=== PATIENT | male | born 1960 | race Caucasian/White ===

== ENCOUNTER 2016-07-21 15:29 | Emergency (ER) | payer SELFPAY ==
[~2016-07-21] VITALS: Ht 177.8 cm; Wt 77.1 kg
[~2016-07-21 15:29] MED LIST: ATOM40CA3 PO; CHLO25CA10 PO; CYCL5TAB PO; DICL50TA6 PO; DIPH25TA82 PO; FLC1T PO; GABA-488 PO; LRZ1T PO; METH20TA PO; MULT1CAP27 PO; NAPR1TAB25 PO; NAPR220C11 PO; NAPR500T3 PO; OMEP40CA36 PO; ONDA4TAB8 PO; OXYC-465 PO; PRD20T PO; RANI150T15 PO; SUCR1TAB PO; SULF1TAB35 PO; THIA100T12 PO; TRAM-42 PO; TRAM50TA2 PO; TRAZ-144 PO; TRAZ100T92 PO; TRZ100T PO; blood pressure PO
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
[2016-07-21 15:59] LABS: BASOPHILS % (AUTO) 0 % (0-10); EOSINOPHILS # (AUTO) 0.1 10^3/uL (0.0-0.3); EOSINOPHILS % (AUTO) 2 % (0-10); LYMPHOCYTES # (AUTO) 1.4 X 10^3 (1.0-4.0); LYMPHOCYTES % (AUTO) 28 % (12-44); MEAN CORPUSCULAR HEMOGLOBIN 30 PG (25-34); MEAN CORPUSCULAR HGB CONC 33 G/DL (32-36); MEAN CORPUSCULAR VOLUME 91 FL (80-99); MEAN PLATELET VOLUME 9.4 FL (7.4-10.4); MONOCYTES # (AUTO) 0.4 X 10^3 (0.0-1.0); MONOCYTES % (AUTO) 8 % (0-12); NEUTROPHILS % (AUTO) 61 % (42-75); PLATELET COUNT 158 10^3/uL (130-400); RED BLOOD COUNT 4.59 10^6/uL (4.35-5.85); RED CELL DISTRIBUTION WIDTH 14.1 % (10.0-14.5); WHITE BLOOD COUNT 4.9 10^3/uL (4.3-11.0)
[2016-07-21] MEDS ORDERED: NS IV 1000 ML 1,000 ML IV SCH (16:00)
[2016-07-21 16:19] LABS: PROTHROMBIN TIME PATIENT 13.1 SEC (12.2-14.7)
[2016-07-21 16:22] LABS: ALANINE AMINOTRANSFERASE 100 U/L (0-55); ALBUMIN 3.7 G/DL (3.2-4.5); ALCOHOL 242 MG/DL (<10); AMMONIA 36 UMOL/L (11-32); ANION GAP 17 MMOL/L (5-14); ASPARTATE AMINO TRANSFERASE 120 U/L (5-34); BILIRUBIN,TOTAL 0.4 MG/DL (0.1-1.0); BLOOD UREA NITROGEN 17 MG/DL (7-18); BUN/CREATININE RATIO 21; CALCIUM 9.1 MG/DL (8.5-10.1); CARBON DIOXIDE 15 MMOL/L (21-32); CHLORIDE 109 MMOL/L (98-107); CREATININE SERUM 0.82 MG/DL (0.60-1.30); GFR ESTIMATED > 60; GLUCOSE 137 MG/DL (70-105); POTASSIUM 3.9 MMOL/L (3.6-5.0); SALICYLATE < 5.0 MG/DL (5.0-20.0); SODIUM 141 MMOL/L (135-145); TOTAL PROTEIN 6.7 G/DL (6.4-8.2)
--- NOTE | 2016-07-21 16:31 | Diagnostic Imaging Report ---
EXAMINATION: Three views of the right hand. INDICATION: Injury. FINDINGS: There is an indeterminate ossified fragment measuring 2 mm seen at the ulnar aspect of the second metacarpal/phalangeal joint. This could be related to an avulsion injury of indeterminate age. No definite donor site is identified. Correlate with the location of injury and focal tenderness. There is otherwise no fracture, dislocation, or radiopaque foreign body seen. IMPRESSION: Indeterminate 2 mm ossified fragment along the ulnar aspect of the second MCP joint. If this matches the location of injury and tenderness, a small avulsion fracture could be considered. Dictated by: Dictated on workstation # [id number]
--- NOTE | 2016-07-21 16:40 | Diagnostic Imaging Report ---
PROCEDURE: CT head and CT cervical spine without contrast. TECHNIQUE: Multiple contiguous axial images were obtained through the brain and cervical spine without the use of intravenous contrast. Sagittal and coronal reformations through the cervical spine were then performed. INDICATION: Altered mental status. Fall. FINDINGS: CT HEAD: There is no intracranial hemorrhage, edema, or mass effect. The brain parenchyma demonstrates periventricular and deep white matter hypodensities, compatible with chronic microvascular ischemic changes. There is no hydrocephalus. No extra-axial fluid collection is seen. The calvarium demonstrates evidence of prior right frontoparietal craniotomy. There is mild soft tissue swelling along the right frontal region which may relate to a small contusion. The visualized portions of the paranasal sinuses and orbits appear grossly unremarkable. CT CERVICAL SPINE: There is straightening of the upper cervical curvature. The vertebral body heights are preserved. There is mild disc height loss at the C4-5 level. At this level, there is prominent disc herniation and an ossification focus, stable from 11/24/2015, which appears to be at the level of the posterior longitudinal ligament. There is suggestion of significant spinal canal stenosis at this level reducing the AP dimension of the spinal canal to 6 mm. The alignment of the facet joints is satisfactory. There is, however, facet and uncovertebral joint degenerative change. This is associated with foraminal stenosis, severe on the right side at the C4-5 and C5-6 levels and severe on the left at C4-5 and moderate at C5-6. There is no widening of the predental space. The alignment of the lateral masses of C1 and C2 and the atlantooccipital joints is satisfactory. No fracture is seen. IMPRESSION: CT HEAD: No intracranial hemorrhage. CT CERVICAL SPINE: Prominent degenerative changes, worst at the C4-5 level, associated with significant spinal canal and foraminal stenosis. No fracture is seen. Dictated by: Dictated on workstation # [id number]
[2016-07-21 18:34] VITALS: BP 124/77
== END 2016-07-21 18:34 | disposition home or self-care (01) ==
LOC: EDUNIT# 15:29 → ER 15:31
DX: F10.129 Alcohol abuse with intoxication, unspecified (principal); F15.90 Other stimulant use, unspecified, uncomplicated; F11.90 Opioid use, unspecified, uncomplicated; S00.81XA Abrasion of other part of head, initial encounter; S69.91XA Unspecified injury of right wrist, hand and finger(s), initial encounter; I10 Essential (primary) hypertension; J44.9 Chronic obstructive pulmonary disease, unspecified; F90.9 Attention-deficit hyperactivity disorder, unspecified type; B19.20 Unspecified viral hepatitis C without hepatic coma; F41.9 Anxiety disorder, unspecified; X58.XXXA Exposure to other specified factors, initial encounter; Y99.8 Other external cause status
CPT/HCPCS: 36415; 70450; 72125; 73130; 80053; 80320; 80329; 82140; 85025; 85610; 85730